=== PATIENT | male | born 1975 | race Caucasian/White ===

== ENCOUNTER 2025-02-19 11:15 | Inpatient (IN) ==
--- NOTE | 2025-02-19 11:49 | Emergency Department Note ---
Impression & Plan Pulmonary embolism Admission ED Provider Note HPI: History obtained from patient. The patient is a 49-year-old gentleman with history of hypertension, presents the emergency department with a chief complaint of right upper extremity swelling/discomfort that has been ongoing for about the past 2 weeks. Patient states that he was seen in the emergency room for the same symptoms at [facility] on 02/10, he states he had an ultrasound done of the right upper extremity at that time that did not show DVT. Patient was ultimately discharged home. Patient states he had a follow-up appointment with his family medicine physician and following his evaluation the patient was recommended to come back to the ER for reassessment. Patient states he has been having some shortness of breath at times with exertion. Patient denies any chest pain. Patient states that he has not had any traumatic injuries to the right upper extremity to attribute the swelling to. Patient states that before the swelling began around 02/06 he was doing some shoveling of dirt in the yard. On arrival here to the ED the patient is hypertensive at 196/93, he is mildly tachycardic at 104, patient otherwise appears to be in no acute distress. ROS: - Per HPI Differential Diagnosis: DVT of the right upper extremity, pulmonary embolism, ACS, pleural effusion, obstructive mass/tumor with venous compression, CHF exacerbation, lymphedema, amongst other potential pathologies. *Outpatient medications and allergy history reviewed. PE: General: Alert HEENT: Normocephalic, trachea midline Eyes: Extraocular eye movement is intact, no scleral erythema Pulmonary: Clear to auscultation bilaterally, no wheezing Cardio: Regular rate and rhythm GI: Abdomen is soft to palpation : No suprapubic tenderness MSK: There is moderate asymmetrical swelling of the right upper extremity in comparison to the left, motor and sensory function is otherwise intact, there is a palpable radial pulse in the right upper extremity Skin: No evidence of rash Neuro: Alert, no focal deficits Psychiatric: Cooperative INDEPENDENT INTERPRETATIONS: hall monitor: (As interpreted by myself): - An order was placed for continuous cardiac monitoring - Patient was noted to be in sinus rhythm with a rate of 80 EKG: (As interpreted by myself): Rate: 89 Rhythm: Normal sinus rhythm Intervals: Within normal limits ST changes: No ST elevation Time: 1147 Interventions provided in ED: - IV fluid bolus, IV heparin drip Medical Decision Making: IV was established and lab work obtained, patient was placed on shelter monitor. Lab work shows no leukocytosis, hemoglobin is normal, platelet count is normal, CMP does not show any evidence of any critical findings. Troponin is negative x 1. Ultrasound imaging of the right upper extremity shows evidence of an occlusive subclavian vein thrombus. CT angiography of the chest was obtained and shows multiple scattered bilateral PE with correlating groundglass opacities possibly pulmonary infarct. No evidence of right heart strain. On my reassessment the patient remains hemodynamically stable and saturating well on room air, given his clot burden I think would be reasonable to admit the patient and started him on a heparin drip for further medical evaluation to determine the source of his clots. Patient was in agreement to this plan. Case was discussed with the on-call hospitalist, Dr. Hirsch, and the patient was placed for admission in stable condition. Consultants/Discussions held with other healthcare providers: - Hospitalist, Dr. Hirsch Disposition discussion held by myself with: - Patient Diagnosis: 1. Bilateral pulmonary emboli with pulmonary infarcts, acute 2. Subclavian vein thrombus, acute, right sided 3. Right upper extremity swelling, acute 4. Dyspnea on exertion, acute Disposition: Admission Smith Masters DO Emergency Medicine Past Med/Surg History Problem List (Updated 02/19/25 @ 15:00 by Smith Masters DO) Pulmonary embolism (Acute) Social History Smoking Status: Never smoker Preferred Language: Portuguese Feels Safe at Home: Yes Results & Data (ED) Vital Signs Vital Signs - 24 hr 02/19/25 11:18 02/19/25 11:39 02/19/25 11:54 Temperature 36.9 C Temperature Source Temporal Artery Scan Pulse Rate 104 H 74 82 Pulse Rate [Apical] Pulse Rhythm Regular Pulse Rhythm [Apical] Pulse Strength [Apical] Respiratory Rate 18 19 Respiratory Effort / Characteristics Non-Labored Spontaneous Respiratory Depth Normal Respiratory Pattern Regular Blood Pressure 196/93 H Blood Pressure [Left Arm] Blood Pressure Mean 127 Blood Pressure Mean [Left Arm] Blood Pressure Position [Left Arm] Pulse Oximetry 98 97 Oxygen Delivery Method Room Air Room Air Sepsis Recent Fever Within 48 Hours No Sepsis New/Unexplained Change in Mental Status N/A Sepsis Action Taken by Nursing No Action Required 02/19/25 11:55 02/19/25 11:57 02/19/25 12:08 Temperature Temperature Source Pulse Rate Pulse Rate [Apical] 75 Pulse Rhythm Pulse Rhythm [Apical] Regular Pulse Strength [Apical] Normal Respiratory Rate 15 Respiratory Effort / Characteristics Non-Labored Non-Labored Respiratory Depth Normal Normal Respiratory Pattern Regular Regular Blood Pressure Blood Pressure [Left Arm] 196/80 H Blood Pressure Mean Blood Pressure Mean [Left Arm] 118 Blood Pressure Position [Left Arm] Lying Pulse Oximetry 95 98 Oxygen Delivery Method Room Air Room Air Room Air Sepsis Recent Fever Within 48 Hours Sepsis New/Unexplained Change in Mental Status Sepsis Action Taken by Nursing 02/19/25 14:10 Temperature Temperature Source Pulse Rate Pulse Rate [Apical] 75 Pulse Rhythm Pulse Rhythm [Apical] Regular Pulse Strength [Apical] Normal Respiratory Rate 15 Respiratory Effort / Characteristics Non-Labored Respiratory Depth Normal Respiratory Pattern Regular Blood Pressure Blood Pressure [Left Arm] 175/81 H Blood Pressure Mean Blood Pressure Mean [Left Arm] 112 Blood Pressure Position [Left Arm] Lying Pulse Oximetry 96 Oxygen Delivery Method Room Air Sepsis Recent Fever Within 48 Hours Sepsis New/Unexplained Change in Mental Status Sepsis Action Taken by Nursing Laboratory Data 02/19/25 11:57 02/19/25 11:57 Lab Results 02/19/25 02/19/25 Range/Units 11:57 13:01 WBC 6.18 (4.8-10.8) K/ul RBC 4.55 L (4.70-6.10) M/uL Hgb 14.0 (14.0-18.0) g/dl Hct 40.5 L (42.0-52.0) % MCV 89.0 (80.0-100.0) fL MCH 30.8 (25.0-34.0) pg MCHC 34.6 (32.0-36.0) g/dL RDW Std Deviation 39.8 (36.4-46.3) fL RDW Coeff of Flak[place] 12.3 (11.5-14.5) % Plt Count 338 (130-400) K/uL MPV 9.7 (9.4-12.4) fL Immature Gran % (Auto) 0.3 % Neut % (Auto) 68.3 % Lymph % (Auto) 19.4 % Hettinger % (Auto) 8.1 % Eos % (Auto) 3.4 % Baso % (Auto) 0.5 % Neut # (Auto) 4.22 (1.40-6.50) K/uL Lymph # (Auto) 1.20 (1.20-3.40) K/uL [place]tinger # (Auto) 0.50 (0.11-0.59) K/uL Eos # (Auto) 0.21 (0.00-0.50) K/uL Baso # (Auto) 0.03 (0.00-0.20) K/uL Immature Gran # (Auto) 0.02 (0.01-0.20) K/uL PT Cancelled 10.7 INR Cancelled 1.0 APTT Cancelled 28 PTT Ratio Cancelled 1.0 Sodium 135 L (136-145) mmol/L Potassium 4.1 (3.5-5.1) mmol/L Chloride 99 (98-107) mmol/L Carbon Dioxide 28 (21-32) mmol/L Anion Gap 8 (3-11) BUN 11 (6-23) mg/dl Creatinine 0.94 (0.6-1.4) mg/dl Est Cr Clr Drug Dosing 106.9 ml/min eGFR 98.15 BUN/Creatinine Ratio 11.7 (10-20) Glucose 154 H (70-99(Fasting)) mg/dl Calcium 9.5 (8.6-10.3) mg/dl Total Bilirubin 0.6 (0.2-1.0) mg/dl AST 26 (13-39) U/L ALT 22 (7-52) U/L Alkaline Phosphatase 56 (34-104) U/L Troponin I High Sens 2.5 (0-20) pg/ml Total Protein 8.0 (6.0-8.3) gm/dl Albumin 4.6 (3.4-5.0) gm/dl Globulin 3.4 (2.5-4.0) gm/dl Albumin/Globulin Ratio 1.4 (0.9-2) Lipase 22 (11-82) U/L Administered Medications Discontinued Medications Sodium Chloride (Nss) 1,000 mls @ 999 mls/hr IV .Q1H1M ONE Stop: 02/19/25 12:47 Last Infusion: 02/19/25 14:12 Dose: Infused Documented By: Admin: 02/19/25 12:23 Dose: 999 mls/hr Documented By: JENNYFER Ioversol (Optiray 320 125ml) 86 ml IV ONCE ONE Stop: 02/19/25 12:49 Last Admin: 02/19/25 12:48 Dose: 86 ml Documented By: JUDITH Imaging Data Radiologist's Impression: Chest CTA 02/19/25 11:46 CT angio chest PE protocol CT DOSE: 976.46 mGy.cm HISTORY: PE, SOB, RUE swelling. TECHNIQUE: Multiple CTA images of the chest were obtained after the intravenous administration of 90 ml Optiray. Coronal and sagittal MIPS were obtained from the axial data set and were submitted for review. All measurements were obtained according to NASCET criteria. A dose lowering technique was utilized adhering to the principles of ALARA. COMPARISON STUDY: None FINDINGS: There are patchy groundglass opacities lateral right upper lobe and posterior lung bases. No lobar consolidation or pleural effusion. No pneumothorax. There is minimal mediastinal adenopathy. No pericardial effusion. No thoracic aortic dissection or aneurysm. There are multiple bilateral segmental and subsegmental pulmonary emboli which correlate in distribution to the pulmonary opacities, consistent with small pulmonary infarctions. There is mild clot burden. RV to LV ratio is less than 1. No acute osseous findings. IMPRESSION: 1. Multiple acute pulmonary emboli with mild clot burden. No evidence of right heart strain. 2. Groundglass pulmonary opacities correlate with the distribution of the pulmonary emboli consistent with small pulmonary infarctions. ACT 112: Positive. There are findings on this exam that require communication between the performing entity and the patient following Patient Test Result Information Act ([place] Act 112) guidelines. The above report was generated using voice recognition software. It may contain grammatical, syntax or spelling errors. Electronically signed by: Trey Torres M.D. 02/19/2025 1:04 PM Shoulder X-Ray 02/19/25 11:46 XR shoulder RT min 2V routine CLINICAL HISTORY: arm swelling/pain COMPARISON: None FINDINGS: There are mild degenerative changes. There is an old fracture at the greater tuberosity. No acute fracture or dislocation. No evidence of osteomyelitis. There is narrowing of the subacromial space consistent with chronic rotator cuff injury. IMPRESSION: No acute fracture seen. Otherwise as described. ACT 112: Negative or not required by law. Electronically signed by: Trey Torres M.D. 02/19/2025 12:27 PM Venous Doppler Study 02/19/25 11:46 RIGHT UPPER EXTREMITY VENOUS DOPPLER ULTRASOUND CLINICAL HISTORY: swelling of RUE, eval for DVT COMPARISON STUDY: No previous studies for comparison. TECHNIQUE: Sonography of the venous system of the right upper extremity was performed. FINDINGS: The right internal jugular vein is patent. Occlusive deep venous thrombus within the right subclavian vein is present. The right axillary, brachial, radial, ulnar, cephalic and basilic veins are patent. IMPRESSION: Occlusive deep venous thrombus within the right subclavian vein. ACT 112: Negative or not required by law. Electronically signed by: Jaswinder Khan M.D. 02/19/2025 2:19 PM Discharge Plan Visit Data Chief Complaint: Shortness of Breath/Dyspnea Stated Complaint: SWOLLEN R ARM, SOB ED Provider: Smith Masters Discharge Problem: Pulmonary embolism Forms Stand Alone Forms: My [facility] Referrals Referrals: PCP,NO [Physician] -
[2025-02-19 12:12] LABS: Basophils # (auto) 0.03 K/uL (0.00-0.20); Basophils % (auto) 0.5 %; Eosinophils # (auto) 0.21 K/uL (0.00-0.50); Eosinophils % (auto) 3.4 %; Hematocrit (blood only) 40.5 % (42.0-52.0); Immature Granulocytes # (auto) 0.02 K/uL (0.01-0.20); Immature Granulocytes % (auto) 0.3 %; Lymphocytes % (auto) 19.4 %; Mean Corpuscular Hemoglobin 30.8 pg (25.0-34.0); Mean Corpuscular Hgb Conc 34.6 g/dL (32.0-36.0); Mean Platelet Volume 9.7 fL (9.4-12.4); Monocytes % (auto) 8.1 %; Neutrophils # (auto) 4.22 K/uL (1.40-6.50); Neutrophils % (auto) 68.3 %; Platelet Count 338 K/uL (130-400); RDW Coefficient of Variation 12.3 % (11.5-14.5); RDW Standard Deviation 39.8 fL (36.4-46.3); Red Blood Count 4.55 M/uL (4.70-6.10); White Blood Count 6.18 K/ul (4.8-10.8)
[2025-02-19] MEDS: SODIUM CHLORIDE 0.9% 1,000 ML IV ONE (12:23)
--- NOTE | 2025-02-19 12:28 | XRay Report ---
XR shoulder RT min 2V routine CLINICAL HISTORY: arm swelling/pain COMPARISON: None FINDINGS: There are mild degenerative changes. There is an old fracture at the greater tuberosity. N o acute fracture or dislocation. No evidence of osteomyelitis. There is narrowing of the subacromial space consistent with chronic rotator cuff injury. IMPRESSION: No acute fracture seen. Otherwise as described. ACT 112: Negative or not required by law. Electronically signed by: Trey Torres M.D. 02/19/2025 12:27 PM
[2025-02-19 12:31] LABS: Albumin Level 4.6 gm/dl (3.4-5.0); Bilirubin,Total 0.6 mg/dl (0.2-1.0); Calcium 9.5 mg/dl (8.6-10.3); Potassium 4.1 mmol/L (3.5-5.1)
[2025-02-19 12:37] LABS: Albumin Globulin Ratio 1.4 (0.9-2); BUN Creatinine Ratio 11.7 (10-20); Creatinine Clr Calc Pharmacy 106.9 ml/min; Globulin 3.4 gm/dl (2.5-4.0); Troponin I High Sensitivity 2.5 pg/ml (0-20)
[2025-02-19] MEDS: OPTIRAY 320 125ml IV ONE (12:48)
--- NOTE | 2025-02-19 13:05 | CT Scan Report ---
CT angio chest PE protocol CT DOSE: 976.46 mGy.cm HISTORY: PE, SOB, RUE swelling. TECHNIQUE: Multiple CTA images of the chest were obtained after the intravenous administration of 90 ml Optiray. Coronal and sagittal MIPS were obtained from the axial data set and were submitted for r eview. All measurements were obtained according to NASCET criteria. A dose lowering technique was ut ilized adhering to the principles of ALARA. COMPARISON STUDY: None FINDINGS: There are patchy groundglass opacities lateral right upper lobe and posterior lung bases. N o lobar consolidation or pleural effusion. No pneumothorax. There is minimal mediastinal adenopathy. No pericardial effusion. No thoracic aortic dissection or aneurysm. There are multiple bilateral segm ental and subsegmental pulmonary emboli which correlate in distribution to the pulmonary opacities, c onsistent with small pulmonary infarctions. There is mild clot burden. RV to LV ratio is less than 1. No acute osseous findings. IMPRESSION: 1. Multiple acute pulmonary emboli with mild clot burden. No evidence of right heart strain. 2. Groundglass pulmonary opacities correlate with the distribution of the pulmonary emboli consistent with small pulmonary infarctions. ACT 112: Positive. There are findings on this exam that require communication between the performing entity and the patient following Patient Test Result Information Act ([place] Act 112) guidelines. The above report was generated using voice recognition software. It may contain grammatical, syntax o r spelling errors. Electronically signed by: Trey Torres M.D. 02/19/2025 1:04 PM
[2025-02-19 13:49] LABS: Partial Thromboplastin Time 28 Seconds (21-31); Prothrombin Time 10.7 Seconds (9.0-12.0)
--- NOTE | 2025-02-19 14:21 | Ultrasound Report ---
RIGHT UPPER EXTREMITY VENOUS DOPPLER ULTRASOUND CLINICAL HISTORY: swelling of RUE, eval for DVT COMPARISON STUDY: No previous studies for comparison. TECHNIQUE: Sonography of the venous system of the right upper extremity was performed. FINDINGS: The right internal jugular vein is patent. Occlusive deep venous thrombus within the right subclavian vein is present. The right axillary, brachial, radial, ulnar, cephalic and basilic veins a re patent. IMPRESSION: Occlusive deep venous thrombus within the right subclavian vein. ACT 112: Negative or not required by law. Electronically signed by: Jaswinder Khan M.D. 02/19/2025 2:19 PM
[2025-02-19] MEDS: HEPARIN SOD (PORCINE) 1000 UNIT/ML IV ONE ×2 (14:52→16:02)
[2025-02-19] MEDS: HEPARIN 25000 UNIT/500 ML D5W 25,000 UNITS/500 ML BAG IV SCH (14:53)
--- NOTE | 2025-02-19 15:14 | Electrocardiogram Report ---
Test Reason : Blood Pressure : */* mmHG Vent. Rate : 89 BPM Atrial Rate : 89 BPM P-R Int : 158 ms QRS Dur : 90 ms QT Int : 376 ms P-R-T Axes : 65 44 45 degrees QTcB Int : 457 ms Normal sinus rhythm Normal ECG No previous ECGs available Confirmed by Gil Chapa ([id number]) on 02/19/2025 3:13:47 PM Referred By: Bahman Buchanan Confirmed By: Gil Chapa
--- NOTE | 2025-02-19 15:27 | History & Physical Report ---
Date of Service February 19, 2025 Assessment & Plan (1) Pulmonary embolism: Plan: Bilateral pulmonary emboli from right upper extremity saphenous vein thrombosis. Currently there is no respiratory failure and he is on room air. He is on a heparin drip. He will eventually be switched to oral Eliquis. He has no previous history of PE or DVT (2) Deep vein thrombosis (DVT) of right upper extremity: Plan: Developed after baseball impact to lateral biceps area of the right upper extremity on February 06. He noticed swelling of the right upper extremity on February 08. Currently on heparin drip (3) Essential hypertension: Plan: He takes telmisartan/HCT and amlodipine for blood pressure control. 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 2 days later he developed right arm swelling and he has some soreness on the lateral aspect of the biceps area. Today he developed chest discomfort and came to the ED for evaluation. He was found to have bilateral PE with evidence of right subclavian vein thrombosis. He has been started on heparin drip by the ED physician. He is on room air. He has no prior history of coagulopathy or DVT. He is admitted for further evaluation and treatment Allergies Allergy/AdvReac Type Severity Reaction Status Date / Time No Known Allergies Allergy Unverified 02/19/25 15:17 Home Medications Medication Instructions Recorded Confirmed Type amlodipine 10 mg tablet 10 mg PO DAILY 02/19/25 02/19/25 History aspirin 81 mg tablet,delayed 81 mg PO DAILY 02/19/25 02/19/25 History release multivit,calcium,min-folic acid 1 tab PO DAILY 02/19/25 02/19/25 History 240 mcg-D3 25 mcg-lycop 300 mcg tablet (One A Day Men Complete) olmesartan 40 1 tab PO DAILY 02/19/25 02/19/25 History mg-hydrochlorothiazide 25 mg tablet omeprazole 40 mg capsule,delayed 40 mg PO DAILY 02/19/25 02/19/25 History release paroxetine HCl 30 mg tablet 30 mg PO DAILY 02/19/25 02/19/25 History Past Med/Surg History Problem List (Updated 02/19/25 @ 15:24 by Henrique Hirsch MD) Essential hypertension Deep vein thrombosis (DVT) of right upper extremity Pulmonary embolism (Acute) Social History Smoking Status: Never smoker Preferred Language: [place] Feels Safe at Home: Yes Review of Systems 2 Review of Systems: Constitutionalno fever or chills ENTno blurred vision, no double vision, no epistaxis, no sore throat Respiratoryno cough, no wheezing, no shortness of breath Cardiacno palpitations, no syncope. Dull inspiratory chest discomfort Any nausea, vomiting, diarrhea, melena, hematochezia GUno urinary retention, no urinary incontinence, no dysuria, no hematuria Musculoskeletalright upper extremity discomfort laterally in the biceps area, no joint pain, no muscle tenderness Skinno bruising, no rashes, no pruritus Neurono isolated weakness, no paresthesia, no weakness Psychno depression, no anxiety Physical Exam 2 Physical Exam: General-alert and oriented x3, no fever, no chills HEENT-head atraumatic and normocephalic, pupils equal and reactive to light, extraocular muscles intact Neck-no lymphadenopathy or thyromegaly, trachea midline Chest-clear to auscultation. No rales, wheezing or rhonchi Cardiac-regular rate and rhythm, normal S1 and S2 Abdomen-normal bowel sounds, no hepatosplenomegaly Extremities-right upper extremity is mildly edematous as compared to the left. Some venous engorgement noted superficially. Tenderness to palpation on the lateral aspect of the right biceps area Neurocranial nerves II through XII intact, motor and sensory function within normal limits, strength symmetrical, no focal deficits Psych-normal affect, normal mood Results & Data Results & Data Vital Signs (Past 12 Hours) Vital Signs Temp Pulse Pulse Resp BP BP Pulse Ox 02/19/25 14:10 75 15 175/81 H 96 02/19/25 12:08 98 02/19/25 11:57 02/19/25 11:55 75 15 196/80 H 95 02/19/25 11:54 82 02/19/25 11:39 74 19 97 02/19/25 11:18 36.9 C 104 H 18 196/93 H 98 O2 Del Method 02/19/25 14:10 Room Air 02/19/25 12:08 Room Air 02/19/25 11:57 Room Air 02/19/25 11:55 Room Air 02/19/25 11:54 02/19/25 11:39 Room Air 02/19/25 11:18 Room Air Laboratory Results 02/19/25 11:57 02/19/25 11:57 Code Status & VTE Plan Code Status Full code PG Care Time/CCT Total # of Minutes Spent Total Time Spent with Patient: Total time spent is greater than 50% in coordination of care (as documented) at patient's floor/unit and/or counseling patient: Coding Level of Care Code 26873 INT INP/OBS CARE 375MIN Diagnoses Pulmonary embolism I26.99 Deep vein thrombosis (DVT) of right upper extremity I82.621 Essential hypertension I10
[2025-02-19] MEDS: Heparin IV Adult Wt-Based Standard w/ INITIAL Bolus Protocol IV STA (16:01)
[2025-02-19] MEDS ORDERED: ACETAMINOPHEN 325 MG TAB PO PRN (18:05)
[2025-02-19] MEDS ORDERED: ONDANSETRON INJ 2 MG/ML 2 ML VIAL IV PRN (18:05)
[2025-02-19 19:14] LABS: Basophils # (auto) 0.02 K/uL (0.00-0.20); Basophils % (auto) 0.3 %; Eosinophils % (auto) 2.5 %; Hematocrit (blood only) 41.1 % (42.0-52.0); Hemoglobin 14.3 g/dl (14.0-18.0); Immature Granulocytes # (auto) 0.02 K/uL (0.01-0.20); Immature Granulocytes % (auto) 0.3 %; Lymphocytes # (auto) 1.52 K/uL (1.20-3.40); Lymphocytes % (auto) 19.4 %; Mean Corpuscular Hemoglobin 31.2 pg (25.0-34.0); Mean Corpuscular Hgb Conc 34.8 g/dL (32.0-36.0); Mean Corpuscular Volume 89.5 fL (80.0-100.0); Mean Platelet Volume 9.7 fL (9.4-12.4); Monocytes # (auto) 0.49 K/uL (0.11-0.59); Monocytes % (auto) 6.2 %; Neutrophils % (auto) 71.3 %; Platelet Count 367 K/uL (130-400); RDW Coefficient of Variation 12.2 % (11.5-14.5); RDW Standard Deviation 39.5 fL (36.4-46.3); Red Blood Count 4.59 M/uL (4.70-6.10); White Blood Count 7.85 K/ul (4.8-10.8)
[2025-02-19 19:23] LABS: Calcium 9.3 mg/dl (8.6-10.3); Creatinine Clr Calc Pharmacy 111.7 ml/min; Potassium 3.7 mmol/L (3.5-5.1)
[2025-02-19] MEDS: amLODIPine BESYLATE 5 MG TAB PO SCH (21:46)
[2025-02-19 22:30] LABS: ANTI-Xa, UFH(UnfractionatedHep 0.22 IU/ml (0.3-0.7)
[2025-02-20 05:50] LABS: Basophils # (auto) 0.02 K/uL (0.00-0.20); Basophils % (auto) 0.3 %; Eosinophils # (auto) 0.23 K/uL (0.00-0.50); Eosinophils % (auto) 3.1 %; Hemoglobin 14.2 g/dl (14.0-18.0); Immature Granulocytes # (auto) 0.02 K/uL (0.01-0.20); Immature Granulocytes % (auto) 0.3 %; Lymphocytes # (auto) 1.61 K/uL (1.20-3.40); Mean Corpuscular Hgb Conc 34.6 g/dL (32.0-36.0); Mean Corpuscular Volume 89.5 fL (80.0-100.0); Mean Platelet Volume 9.5 fL (9.4-12.4); Monocytes # (auto) 0.57 K/uL (0.11-0.59); Monocytes % (auto) 7.8 %; Neutrophils # (auto) 4.86 K/uL (1.40-6.50); Neutrophils % (auto) 66.5 %; Platelet Count 347 K/uL (130-400); RDW Coefficient of Variation 12.2 % (11.5-14.5); RDW Standard Deviation 39.5 fL (36.4-46.3); Red Blood Count 4.58 M/uL (4.70-6.10); White Blood Count 7.31 K/ul (4.8-10.8)
[2025-02-20 06:06] LABS: BUN Creatinine Ratio 8.2 (10-20); Calcium 9.3 mg/dl (8.6-10.3); Creatinine Clr Calc Pharmacy 110.9 ml/min; Potassium 3.7 mmol/L (3.5-5.1)
[2025-02-20 06:11] LABS: ANTI-Xa, UFH(UnfractionatedHep 0.28 IU/ml (0.3-0.7)
[2025-02-20] MEDS: ASPIRIN 81 MG ECTAB PO SCH (08:13)
[2025-02-20] MEDS: LOSARTAN POTASSIUM 50 MG TAB PO SCH (08:13)
--- NOTE | 2025-02-20 12:36 | Hospitalist Progress Note ---
Date of Service February 20, 2025 Assessment & Plan (1) Pulmonary embolism: Plan: b/l source - right subclavian vein DVT stable in room air, minimal symptoms from the PEs no evidence of right heart failure on exam or by way of imaging but will check echo to be complete cont heparin infusion, standard dosing ultimate transition to PO Eliquis in the future (2) Deep vein thrombosis (DVT) of right upper extremity: Plan: unusual events leading up to this diagnosis with baseball injury to the RUE on February 06, followed by swelling of the RUE on February 08, negative RUE doppler on February 10 at [facility], followed by more swelling no personal or family h/o VTE, no recent travel, no recent surgery informal communication had with Dr Parker from vascular surgery today; he will see Mr Lopez in consult tomorrow he reviewed the CTA chest along with doppler study ?thoracic outlet syndrome leading to the subclavian vein thrombosis? did the trauma of the baseball injury create enough venous injury in the arm causing turbulent blood flow and ultimately the clotting event in the setting of thoracic outlet syndrome?? cont heparin drip ultimate transition to po Eliquis send hypercoagulable w/u (factor 5 Leiden mutation, prothrombin gene mutation, etc) Dr Parker considering embolectomy of the subclavian vein DVT can elevate the arm to reduce swelling (3) Essential hypertension: Plan: He takes telmisartan/HCT and amlodipine for blood pressure control. 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: Plan: question of will defer to Dr Parker re: this possible diagnosis (7) GERD (gastroesophageal reflux disease): Plan: cont PPI once daily Plan updated multiple times at bedside today care d/w Dr Parker from vascular surgery today Admission and Anticipated Discharge Date Admission Date: February 19, 2025 Subjective patient walking around in his room when I first went to see him his & father were present as well patient reports that his right arm swelling has improved over the last day or 2 he provides a timeline of recent events - February 06 - was umpiring a HS baseball game, 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 February 08 - RUE started to swell February 10 - went to [facility] - had RUE venous duplex - negative for DVT; they specifically say in the report that the jugular & subclavian veins compressed normally in the week after the [facility] ER visit the right arm continued to swell despite the above he was going to work, continuing to umpire baseball games, etc no recent travel no recent surgery (had rotator cuff surgery on right shoulder ~4 years ago only) no fam Hx of VTE patient reports occasional paresthesias of both arms at night-time he will straighten the arm out and the paresthesias resolve health - in general has felt well over the last 6 months no weight loss no change in health Review of Systems Review of Systems: cv - no chest pain pulm - recent MCKEON (mild); no cough GI - no N/V/abd pain Physical Exam Physical Exam: gen - WD,WN male in NAD neck - no JVD mouth - MMM heart - RRR, s1 s2, no murmur lungs - CTA b/l abd - soft NT ND BS+, no HSM vascular - radial pulses b/l 2+ ext - no ankle or foot edema b/l, pulses of feet 2+ RUE - mild swelling extending from upper arm down to right hand (he reports it has improved since admission); mild ecchymoses of biceps region; there are multiple small superficial veins on the right chest wall extending to the biceps/shoulder area that are mildly engorged Results & Data Results & Data Vital Signs (Past 12 Hours) Vital Signs Temp Pulse Pulse Resp BP Pulse Ox O2 Del Method 02/20/25 09:35 Room Air 02/20/25 07:20 64 02/20/25 07:06 36.9 C 73 18 137/77 96 Room Air 02/20/25 02:57 72 18 161/75 H 99 Room Air, CPAP Laboratory Results Laboratory Results - last 24 hr 02/19/25 02/19/25 02/19/25 11:57 13:01 18:53 WBC 7.85 RBC 4.59 L Hgb 14.3 Hct 41.1 L MCV 89.5 MCH 31.2 MCHC 34.8 RDW Std Deviation 39.5 RDW Coeff of Flakita 12.2 Plt Count 367 MPV 9.7 Immature Gran % (Auto) 0.3 Neut % (Auto) 71.3 Lymph % (Auto) 19.4 [place] % (Auto) 6.2 Eos % (Auto) 2.5 Baso % (Auto) 0.3 Neut # (Auto) 5.60 Lymph # (Auto) 1.52 [place] # (Auto) 0.49 Eos # (Auto) 0.20 Baso # (Auto) 0.02 Immature Gran # (Auto) 0.02 PT 10.7 INR 1.0 APTT 28 PTT Ratio 1.0 Heparin Anti-Xa, Unfract Sodium 136 Potassium 3.7 Chloride 101 Carbon Dioxide 29 Anion Gap 6 BUN 11 9 Creatinine 0.94 0.90 Est Cr Clr Drug Dosing 106.9 111.7 eGFR 98.15 103.40 BUN/Creatinine Ratio 11.7 10.0 Glucose 154 H 153 H Calcium 9.3 AST 26 ALT 22 Alkaline Phosphatase 56 Troponin I High Sens 2.5 Total Protein 8.0 Globulin 3.4 Albumin/Globulin Ratio 1.4 Lipase 02/19/25 02/20/25 20:59 05:22 WBC 7.31 RBC 4.58 L Hgb 14.2 Hct 41.0 L MCV 89.5 MCH 31.0 MCHC 34.6 RDW Std Deviation 39.5 RDW Coeff of Flakita 12.2 Plt Count 347 MPV 9.5 Immature Gran % (Auto) 0.3 Neut % (Auto) 66.5 Lymph % (Auto) 22.0 [place] % (Auto) 7.8 Eos % (Auto) 3.1 Baso % (Auto) 0.3 Neut # (Auto) 4.86 Lymph # (Auto) 1.61 [place] # (Auto) 0.57 Eos # (Auto) 0.23 Baso # (Auto) 0.02 Immature Gran # (Auto) 0.02 PT INR APTT PTT Ratio Heparin Anti-Xa, Unfract 0.22 L 0.28 L Sodium 137 Potassium 3.7 Chloride 100 Carbon Dioxide 28 Anion Gap 9 BUN 8 Creatinine 0.97 Est Cr Clr Drug Dosing 110.9 eGFR 94.52 BUN/Creatinine Ratio 8.2 L Glucose 132 H Calcium 9.3 AST ALT Alkaline Phosphatase Troponin I High Sens Total Protein Globulin Albumin/Globulin Ratio Lipase PG Care Time/CCT Total # of Minutes Spent Total Time Spent with Patient: Total time spent is greater than 50% in coordination of care (as documented) at patient's floor/unit and/or counseling patient: Coding Level of Care Code 27172 SUB INP/OBS CARE 3/50MIN Diagnoses Pulmonary embolism I26.99 Deep vein thrombosis (DVT) of right upper extremity I82.621 Essential hypertension I10 Anxiety F41.9 Hyperglycemia R73.9 Venous thoracic outlet syndrome of right subclavian vein I87.1 GERD (gastroesophageal reflux disease) K21.9
[2025-02-20] MEDS: PANTOprazole 40 MG TAB PO STA (13:15)
[2025-02-20] MEDS: PARoxetine HCL 10 MG TAB PO ONE (13:15)
[2025-02-20 13:19] LABS: ANTI-Xa, UFH(UnfractionatedHep 0.25 IU/ml (0.3-0.7)
--- NOTE | 2025-02-20 13:34 | Communication Note ---
Date of Service: February 20, 2025 Will see patient tomorrow. Would continue heparin. I believe he would benefit from a mechanical thrombectomy of his right subclavian vein. CTA suggests v enous compression in the left thoracic outlet. TOS is commonly bilateral. I do believe he may have TOS of the right side contributing to his venous obstruction.
[2025-02-20] MEDS: LORazepam 0.5 MG TAB PO PRN (18:19)
[2025-02-21 03:25] LABS: BUN Creatinine Ratio 9.3 (10-20); Calcium 9.3 mg/dl (8.6-10.3); Creatinine Clr Calc Pharmacy 110.9 ml/min; Potassium 3.7 mmol/L (3.5-5.1)
[2025-02-21 03:41] LABS: ANTI-Xa, UFH(UnfractionatedHep 0.39 IU/ml (0.3-0.7)
[2025-02-21 06:37] LABS: Basophils # (auto) 0.02 K/uL (0.00-0.20); Basophils % (auto) 0.3 %; Eosinophils # (auto) 0.24 K/uL (0.00-0.50); Hematocrit (blood only) 40.3 % (42.0-52.0); Hemoglobin 13.6 g/dl (14.0-18.0); Immature Granulocytes # (auto) 0.01 K/uL (0.01-0.20); Immature Granulocytes % (auto) 0.1 %; Mean Corpuscular Hemoglobin 30.6 pg (25.0-34.0); Mean Corpuscular Hgb Conc 33.7 g/dL (32.0-36.0); Mean Corpuscular Volume 90.6 fL (80.0-100.0); Mean Platelet Volume 9.5 fL (9.4-12.4); Monocytes # (auto) 0.67 K/uL (0.11-0.59); Monocytes % (auto) 8.4 %; Neutrophils # (auto) 5.09 K/uL (1.40-6.50); Neutrophils % (auto) 64.2 %; Platelet Count 353 K/uL (130-400); RDW Coefficient of Variation 12.2 % (11.5-14.5); RDW Standard Deviation 40.2 fL (36.4-46.3); Red Blood Count 4.45 M/uL (4.70-6.10); White Blood Count 7.93 K/ul (4.8-10.8)
[2025-02-21 07:12] LABS: ANTI-Xa, UFH(UnfractionatedHep 0.41 IU/ml (0.3-0.7)
[2025-02-21] MEDS: PARoxetine HCL 10 MG TAB PO SCH (08:18)
[2025-02-21] MEDS: PANTOprazole 40 MG TAB PO SCH (08:18)
--- NOTE | 2025-02-21 10:43 | XCELERA ---
[id number]
--- NOTE | 2025-02-21 15:32 | Consultation ---
Date of Consultation February 21, 2025 Assessment & Plan (1) Venous thoracic outlet syndrome of right subclavian vein: It appears at this patient has a right subclavian vein thrombosis secondary to thoracic outlet syndrome. We recommend at this time mechanical thrombectomy of the right subclavian vein followed in the future with a first rib resection on the right. Consideration should also be given for left first rib resection due to compression of the vein on the CT angiogram. Will plan on the mechanical thrombectomy tomorrow. Thank you very much for letting us participate in the care of this patient. History of Present Illness Reason for Consultation: Right subclavian vein thrombosis Attending Physician: Chun Wyatt MD History of Present Illness This is a 49-year-old gentleman had arm swelling developed. 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 He has never had arm swelling in the past and denies any clotting disorders in the past. He was seen in outlying facility that did not show any deep venous thrombosis. He then had more arm swelling and presented to [facility] where he was found to have a subclavian vein clot in the right side and small pulmonary emboli. CT angiogram showed pulmonary emboli and ultrasound showed a right subclavian vein thrombosis. On the CT angiogram there was point of the subclavian on the left side consistent with thoracic outlet syndrome. He did play sports in the past to include baseball and wrestling. He has a job and does a lot of driving and he does drive with his arm elevated on top of the steering wheel with both left and right hand. Allergies Allergy/AdvReac Type Severity Reaction Status Date / Time No Known Allergies Allergy Unverified 02/19/25 15:17 Home Medications Medication Instructions Recorded Confirmed Type amlodipine 10 mg tablet 10 mg PO DAILY 02/19/25 02/19/25 History aspirin 81 mg tablet,delayed 81 mg PO DAILY 02/19/25 02/19/25 History release multivit,calcium,min-folic acid 1 tab PO DAILY 02/19/25 02/19/25 History 240 mcg-D3 25 mcg-lycop 300 mcg tablet (One A Day Men Complete) olmesartan 40 1 tab PO DAILY 02/19/25 02/19/25 History mg-hydrochlorothiazide 25 mg tablet omeprazole 40 mg capsule,delayed 40 mg PO DAILY 02/19/25 02/19/25 History release paroxetine HCl 30 mg tablet 30 mg PO DAILY 02/19/25 02/19/25 History Patient History Social History Smoking Status: Never smoker Hx Alcohol Use: Yes Alcohol type: beer Hx Substance Use: No Preferred Language: Romansh Communication Ability: Effective Special Projects Manager Required: No Beliefs That Will Affect Care: None Current Living Situation: Spouse Feels Safe at Home: Yes Assistive Devices: CPAP Review of Systems Review of Systems: All systems reviewed & are unremarkable except as noted in HPI & below Physical Exam Constitutional: WD/WN, vitals as above Respiratory: normal respiratory effort; no respiratory distress Cardiovascular: Rate/Rhythm: regular rate and regular rhythm Vessels: normal peripheral pulses Extremities: normal capillary refill and + edema (right arm) Psychiatric: A+Ox3, euthymic affect Results & Data Vital Signs (Past 12 Hours) Vital Signs Temp Pulse Pulse Resp BP Pulse Ox O2 Del Method 02/21/25 14:49 90 02/21/25 11:16 36.7 C 73 16 158/73 H 96 Room Air 02/21/25 08:47 53 L 02/21/25 07:50 36.6 C 66 16 168/70 H 98 Room Air 02/21/25 07:33 Room Air
--- NOTE | 2025-02-21 20:26 | Hospitalist Progress Note ---
Date of Service February 21, 2025 Assessment & Plan (1) Pulmonary embolism: Plan: b/l source - right subclavian vein DVT stable in room air, minimal symptoms from the PEs, echo with no signs of right heart failure / RV strain cont heparin infusion ultimate transition to PO Eliquis in the future following his surgery (2) Deep vein thrombosis (DVT) of right upper extremity: Plan: unusual events leading up to this diagnosis with baseball injury to the RUE on February 06, followed by swelling of the RUE on February 08, negative RUE doppler on February 10 at [facility], followed by more swelling no personal or family h/o VTE, no recent travel, no recent surgery Dr Parker from [facility] believes that Mr Lopez may have thoracic outlet syndrome which could have contributed heavily to the development of his right subclavian vein DVT cont heparin drip ultimate transition to po Eliquis sent hypercoagulable w/u this AM (factor 5 Leiden mutation, prothrombin gene mutation, etc) Dr Parker to perform mechanical thrombectomy of the subclavian vein DVT on Tuesday, 02/22 NPO after MN tonight can elevate the arm to reduce swelling (3) Essential hypertension: Plan: He takes telmisartan/HCT and amlodipine for blood pressure control. 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: Plan: suspected will need referral to tertiary care center after discharge to complete further work-up and treatment for this possible diagnosis appreciate Dr Parker's assistance (7) GERD (gastroesophageal reflux disease): Plan: cont PPI once daily Plan updated multiple times at bedside yesterday Admission and Anticipated Discharge Date Admission Date: February 19, 2025 Subjective no events RUE swelling modestly improved no pain of RUE minimal dyspnea on exertion present - improved from time of admission tele overnight wnl Review of Systems Review of Systems: CV - no pleuritic pain pulm - no cough GI - no N/V Physical Exam Physical Exam: gen - WD, WN male; NAD; looks well neck - no JVD mouth - MMM heart - RRR, s1 s2, no murmur lungs - CTA b/l abd - soft NT ND BS+, no HSM ext - no ankle or foot edema b/l, pulses of feet 2+ RUE - mild swelling extending from upper arm down to right hand - again improved today; mild ecchymoses of biceps region; there are multiple small superficial veins on the right chest wall extending to the biceps/shoulder area that are mildly engorged Results & Data Results & Data Vital Signs (Past 12 Hours) Vital Signs Temp Pulse Pulse Resp BP Pulse Ox O2 Del Method 02/21/25 15:32 36.5 C 63 18 151/76 H 95 Room Air 02/21/25 14:49 90 02/21/25 11:16 36.7 C 73 16 158/73 H 96 Room Air 02/21/25 08:47 53 L Laboratory Results Laboratory Results - last 24 hr 02/21/25 02/21/25 02/21/25 02:49 02:54 06:06 WBC 7.93 RBC 4.45 L Hgb 13.6 L Hct 40.3 L MCV 90.6 MCH 30.6 MCHC 33.7 RDW Std Deviation 40.2 RDW Coeff of Flakita 12.2 Plt Count 353 MPV 9.5 Immature Gran % (Auto) 0.1 Neut % (Auto) 64.2 Lymph % (Auto) 24.0 Worth % (Auto) 8.4 Eos % (Auto) 3.0 Baso % (Auto) 0.3 Neut # (Auto) 5.09 Lymph # (Auto) 1.90 Worth # (Auto) 0.67 H Eos # (Auto) 0.24 Baso # (Auto) 0.02 Immature Gran # (Auto) 0.01 Heparin Anti-Xa, Unfract 0.39 0.41 Factor V Leiden Mutat Pending Factor V Leiden Interp Pending Sodium 137 Potassium 3.7 Chloride 101 Carbon Dioxide 29 Anion Gap 7 BUN 9 Creatinine 0.97 Est Cr Clr Drug Dosing 110.9 eGFR 94.52 BUN/Creatinine Ratio 9.3 L Glucose 125 H Calcium 9.3 Homocysteine Pending Beta-2-GPI IgG Ab Pending Beta-2-GPI IgM Ab Pending Anti-Cardiolipin IgG Ab Pending Anti-Cardiolipin IgM Ab Pending Prothrombin Gene Mutate Pending Prothromb Gene Comment Pending PG Care Time/CCT Total # of Minutes Spent Total Time Spent with Patient: Total time spent is greater than 50% in coordination of care (as documented) at patient's floor/unit and/or counseling patient: Coding Level of Care Code 29170 SUB INP/OBS CARE 2/35MIN Diagnoses Pulmonary embolism I26.99 Deep vein thrombosis (DVT) of right upper extremity I82.621 Essential hypertension I10 Anxiety F41.9 Hyperglycemia R73.9 Venous thoracic outlet syndrome of right subclavian vein I87.1 GERD (gastroesophageal reflux disease) K21.9
[2025-02-22 06:30] LABS: Basophils # (auto) 0.02 K/uL (0.00-0.20); Basophils % (auto) 0.3 %; Eosinophils # (auto) 0.26 K/uL (0.00-0.50); Eosinophils % (auto) 3.8 %; Hematocrit (blood only) 39.6 % (42.0-52.0); Hemoglobin 13.7 g/dl (14.0-18.0); Immature Granulocytes # (auto) 0.02 K/uL (0.01-0.20); Immature Granulocytes % (auto) 0.3 %; Lymphocytes # (auto) 1.74 K/uL (1.20-3.40); Lymphocytes % (auto) 25.3 %; Mean Corpuscular Hemoglobin 31.2 pg (25.0-34.0); Mean Corpuscular Hgb Conc 34.6 g/dL (32.0-36.0); Mean Corpuscular Volume 90.2 fL (80.0-100.0); Mean Platelet Volume 9.6 fL (9.4-12.4); Monocytes # (auto) 0.57 K/uL (0.11-0.59); Monocytes % (auto) 8.3 %; Neutrophils # (auto) 4.26 K/uL (1.40-6.50); Platelet Count 324 K/uL (130-400); RDW Coefficient of Variation 12.1 % (11.5-14.5); RDW Standard Deviation 40.1 fL (36.4-46.3); Red Blood Count 4.39 M/uL (4.70-6.10); White Blood Count 6.87 K/ul (4.8-10.8)
[2025-02-22 06:50] LABS: BUN Creatinine Ratio 10.6 (10-20); Calcium 9.2 mg/dl (8.6-10.3); Creatinine Clr Calc Pharmacy 114.5 ml/min; Potassium 3.9 mmol/L (3.5-5.1)
--- NOTE | 2025-02-22 07:37 | History & Physical Bridge Note ---
Date of Service February 22, 2025 History & Physical Bridge Note Patient for mechanical thrombectomy of his right subclavian vein. I have discussed the risks options and benefits of the procedure with the patient. The patient understands the risks options and benefits and agrees to the procedure. I have examined the patient, reviewed the History & Physical and in the interval since the performance of the History & Physical I have noted the following changes of clinical significance: no changes noted
[2025-02-22 08:36] LABS: Estimated Average Glucose 108 mg/dl; Hemoglobin A1C 5.4 % (4.5-5.6)
[2025-02-22] MEDS: ceFAZolin 2000MG 2,000 MG/15 ML SYR IV SCH (15:13)
--- NOTE | 2025-02-22 15:20 | Pre Anesthesia Assessment ---
Date of Service February 22, 2025 Pre Sedation Assessment Vital Signs Temp Pulse Pulse Resp BP Pulse Ox O2 Del Method 02/22/25 15:03 36.9 C 69 20 157/85 H 97 Room Air 02/22/25 14:00 69 02/22/25 08:38 36.7 C 61 20 143/82 H 96 Room Air 02/22/25 07:00 69 02/22/25 03:30 36.4 C L 65 16 151/77 H 97 Room Air, CPAP 02/21/25 23:12 36.6 C 57 L 18 173/74 H 96 Room Air 02/21/25 21:53 60 02/21/25 19:38 36.8 C 66 18 160/84 H 98 Room Air 02/21/25 15:32 36.5 C 63 18 151/76 H 95 Room Air Cardiovascular RRR, no murmur, no edema Respiratory normal respiratory effort, lungs clear to auscultation Pre-Sedation Airway Assessment Smoking Status: Never smoker Hx Sleep Apnea: No Short, Thick Neck: No Thyromental Distance: > or= 3.5 Finger Breadths Oral Cavity: + WNL Mallampati Class: I ASA: ASA2 NPO Status Date of Last Intake of Fluids: 02/22/25 Time of Last Intake of Fluids: 23:30 Date of Last Intake of Solid Food: 02/22/25 Time of Last Intake of Solid Foods: 23:30 Procedure Planning Contraindications for Sedation: none Current Medications Reviewed: Yes Notes The planned sedation has been discussed with the patient. Informed Consent was obtained. I have identified the patient, determined the appropriateness of sedation and have assessed the patient immediately prior to the procedure. All medicine(s) and interventions are by my order.
[2025-02-22] MEDS ORDERED: VISIPAQUE IV PRN (15:37)
[2025-02-22] MEDS: MIDAZOLAM HCL 1 MG/ML 2ML VIAL ONE ×3 (15:45→17:35)
[2025-02-22] MEDS: fentaNYL citrate PF 100 MCG/2 ML VIAL ONE ×2 (15:45→16:45)
[2025-02-22] MEDS: HEPARIN SOD (PORCINE) 1000 UNIT/ML ONE (16:00)
[2025-02-22] MEDS: LIDOCAINE 1% LOCAL 20 ML VIAL ONE (16:59)
--- NOTE | 2025-02-22 17:08 | Operative Report ---
Post Operative Report Pre & Post Diagnosis Operation Date: 02/22/25 13:20 Pre-Op Diagnosis: Right Subclavian Vein Thrombosis, Thoracic Outlet Obstruction Post-Op Diagnosis: Right Subclavian Vein Thrombosis, Thoracic Outlet Obstruction I identified the patient and participated in the time-out.: Yes Procedure Operation Date: 02/22/25 13:20 Actual Procedures p Right Subclavian Vein Mechanical Thrombectomy, Percutaneous Transluminal Angionplasty of Subclavian Vein, Moderate Sedation 1545 - 0424- Fredrick Parker MD Surgeon Fredrick Parker MD Lag Screwer Bon Thompson MD Estimated Blood Loss 300 Findings Consistent with Post-Op Diagnosis Thrombosed axillary and subclavian vein with significant amount of thrombus. Following thrombectomy and balloon angioplasty there was reconstitution of flow through then axillary and subclavian vein. Specimens None Anesthesia Type RN Sedation Complications None Disposition Accompanied Patient To Recovery: No Indications Mr. Jewel Lopez is a pleasant 49 year old male who recently developed an occlusive subclavian vein DVT secondary to vTOS. We discussed performing a thrombectomy and after discussion of the risks and benefits the patient elected to proceed. Description of Procedure The patient was taken to the angiogram suite and placed in the supine position. The right arm was then prepped and draped in a sterile manner. Local anesthetic was administered and a percutaneous puncture was then made just above the brachial fossa in the brachial vein. Micropuncture wire and sheath were then inserted. A venogram was then performed. This showed a patent brachial vein and occluded axillary vein and subclavian vein. An angled glide wire was then inserted. The micropuncture sheath was exchanged for a 5Fr sheath. The wire and quickcross catheter were used to cross the occlusion and reach the SVC. Catheter was confirmed in SVC via angiogram. The 5Fr sheath was then exchanged for an 11FR sheath. The Penumbra mechanical thrombectomy catheter 12Fr bolt was then used to perform a mechanical thrombectomy of the axillary and subclavian vein. Substantial acute thrombus was removed. Flow was restored through the venous system. There was significant narrowing seen at the level of the thoracic outlet. Balloon angioplasty of the subclavian vein was then performed here using a [place]alli 12mm balloon. Completion venogram demonstrated significant improvement with a patent axillary and subclavian vein draining into the SVC. The sheath was then pulled and pressure was applied. Adequate hemostasis was obtained. The patient left the angiogram suite in good condition and tolerated the procedure well. Dr. Parker was present and scrubbed for the entire procedure. I attest to the content of the Intraoperative Record and any orders documented therein. Any exceptions are noted below. Supervising Physician Co-Signing Physician Notes Fredrick Parker MD
--- NOTE | 2025-02-22 17:09 | Post Operative Brief Note ---
Immediate Post Op Note Date of Surgery February 22, 2025 Pre & Post Diagnosis Operation Date: 02/22/25 13:20 Pre-Op Diagnosis: Right Subclavian Vein Thrombosis, Thoracic Outlet Obstruction Post-Op Diagnosis: Right Subclavian Vein Thrombosis, Thoracic Outlet Obstruction I identified the patient and participated in the time-out.: Yes Procedure Operation Date: 02/22/25 13:20 Actual Procedures p Right Subclavian Vein Mechanical Thrombectomy, Percutaneous Transluminal Angionplasty of Subclavian Vein, Moderate Sedation 1545 - 4654- Fredrick Parker MD Surgeon Fredrick Parker MD Cotton Presser Bon Thompson MD Estimated Blood Loss 300 Findings Consistent with Post-Op Diagnosis Anesthesia Type RN Sedation Complications none Disposition Accompanied Patient To Recovery: No Disposition: Recovery Room
--- NOTE | 2025-02-22 17:11 | Post Anesthesia Assessment ---
Date of Service February 22, 2025 Post Sedation Assessment Vital Signs Temp Pulse Pulse Resp BP Pulse Ox O2 Del Method 02/22/25 17:09 65 16 143/66 H 99 Oxymask 02/22/25 17:05 65 16 145/96 H 99 Oxymask 02/22/25 17:00 68 16 143/83 H 99 Oxymask 02/22/25 16:55 72 16 142/81 H 99 Oxymask 02/22/25 16:50 66 16 160/94 H 99 Oxymask 02/22/25 16:45 68 16 146/88 H 99 Oxymask 02/22/25 16:40 73 16 144/85 H 99 Oxymask 02/22/25 16:35 70 16 144/80 H 99 Oxymask 02/22/25 16:30 74 16 141/77 H 99 Oxymask 02/22/25 16:25 74 16 137/81 99 Oxymask 02/22/25 16:20 74 16 146/87 H 99 Oxymask 02/22/25 16:15 78 16 140/88 99 Oxymask 02/22/25 16:10 78 16 153/82 H 99 Oxymask 02/22/25 16:05 75 16 153/89 H 99 Oxymask 02/22/25 16:00 78 16 155/84 H 99 Oxymask 02/22/25 15:55 80 16 157/85 H 99 Oxymask 02/22/25 15:50 77 16 168/83 H 100 Oxymask 02/22/25 15:45 83 16 154/90 H 100 Oxymask 02/22/25 15:38 67 16 154/88 H 100 Oxymask 02/22/25 15:03 36.9 C 69 20 157/85 H 97 Room Air 02/22/25 14:00 69 02/22/25 08:38 36.7 C 61 20 143/82 H 96 Room Air 02/22/25 07:00 69 02/22/25 03:30 36.4 C L 65 16 151/77 H 97 Room Air, CPAP 02/21/25 23:12 36.6 C 57 L 18 173/74 H 96 Room Air 02/21/25 21:53 60 02/21/25 19:38 36.8 C 66 18 160/84 H 98 Room Air O2 Flow Rate 02/22/25 17:09 4 02/22/25 17:05 4 02/22/25 17:00 4 02/22/25 16:55 4 02/22/25 16:50 4 02/22/25 16:45 4 02/22/25 16:40 4 02/22/25 16:35 4 02/22/25 16:30 4 02/22/25 16:25 4 02/22/25 16:20 4 02/22/25 16:15 4 02/22/25 16:10 4 02/22/25 16:05 4 02/22/25 16:00 4 02/22/25 15:55 4 02/22/25 15:50 4 02/22/25 15:45 4 02/22/25 15:38 4 02/22/25 15:03 02/22/25 14:00 02/22/25 08:38 02/22/25 07:00 02/22/25 03:30 02/21/25 23:12 02/21/25 21:53 02/21/25 19:38 Recovery Score Activity: Moves 4 extremities Respiration: Deep Breath/Cough Circulation: +/-20% PreAnes Value Consciousness: Fully Awake Oxygen Saturation: > 92% On Room Air Post Anesthesia Score: 10 Discharge Sedation Level of Care: Fast Track Phase II Post Sedation Plan On clinical assessment, the patient appears to have tolerated the sedation without complications. Patient is recovering as anticipated. Patient will continue to be monitored by nursing and may be discharged when sedation discharge criteria are met per below protocol. Upon Completions of procedure up to 15 minutes continue every 5 minute vital signs and the P.A.R. score; then discharge to a Phase I or Fast Track to Phase II per the following guidelines: * Discharge Patient to appropriate Phase II area if PAR is 8 or greater or return to pre- procedure baseline. The post - procedure orders will be as directed. * If PAR score is less than 8 or not return to pre-procedure baseline then patient will follow Phase I monitoring till PAR is reached for Phase II. The Phase I may be done in procedure room or may call to secure a Phase I area. * If naloxone or flumazenil are used for reversal, hold in Phase I for continued monitoring from when last reversal dose was given for a minimum of 60 minutes or longer pending the nurse and/or physician discretion of patient condition before discharge to Phase II. Please call the Sedation Physician to re-evaluate and complete post-note for discharge to Phase II area. Do NOT discharge from procedure sedation or Phase 1 until post- sedation evaluation note is complete by procedure /sedation MD Sedation Discharge Instructions to be given to the patient at discharge to home.
[2025-02-22] MEDS: APIXABAN 5 MG TABLET PO SCH (17:58)
[2025-02-22] MEDS: CLOPIDOGREL BISULFATE 300 MG TAB PO STA (17:59)
--- NOTE | 2025-02-22 19:57 | Hospitalist Progress Note ---
Date of Service February 22, 2025 Assessment & Plan (1) Pulmonary embolism: Plan: b/l source - right subclavian vein DVT stable in room air, minimal MCKEON from the PEs, echo with no signs of right heart failure / RV strain cont heparin infusion until 9pm at which point it will be stopped transitioning to PO Eliquis today - 10mg BID x 7 days, then 5mg BID thereafter check reynolds of such in the AM tomorrow (2) Deep vein thrombosis (DVT) of right upper extremity: Plan: unusual events leading up to this diagnosis with baseball injury to the RUE on February 06, followed by swelling of the RUE on February 08, negative RUE doppler on February 10 at [facility], followed by more swelling doppler study of RUE at admission with occlusive DVT of R subclavian vein during today's surgery the R axillary vein also had DVT s/p [facility] thrombectomy and angioplasty by Dr Elena Parker from [facility] believes that Mr Lopez has thoracic outlet syndrome which could have contributed heavily to the development of his right subclavian vein DVT (and newly found R axillary vein DVT) cont heparin drip until 9pm tonight then stop transition to po Eliquis 10mg BID x 7 days then 5mg BID thereafter hypercoagulable w/u sent (factor 5 Leiden mutation, prothrombin gene mutation, etc) homocysteine level returned normal appreciate Dr Parker's assistance (3) Essential hypertension: Plan: He takes telmisartan/HCT and amlodipine for blood pressure control. 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: Plan: suspected based on CTA chest findings as well as OR findings from today will need referral to tertiary care center after discharge to complete further work-up and treatment for this possible diagnosis appreciate Dr Parker's assistance (7) GERD (gastroesophageal reflux disease): Plan: cont PPI once daily Plan updated briefly today can likely d/c home in am tomorrow check CBC, BMP in am for stability Admission and Anticipated Discharge Date Admission Date: February 19, 2025 Subjective tele overnight wnl saw patient post-op from his thrombectomy of the right subclavian vein DVT he was feeling well anxious and ready to eat! no N/V/chest pain/dyspnea/abd pain no numbness in right arm or hand no pain in right arm or hand swelling improved RUE he is very pleased with how everything went today Review of Systems Review of Systems: gen - feels well GI - no abd pain CV - no edema of legs pulm - minimal MCKEON Physical Exam Physical Exam: gen - looks great; NAD; walking around the room neck - no JVD mouth - MMM heart - RRR, s1 s2, no murmur lungs - CTA b/l abd - soft NT ND BS+, no HSM ext - no ankle or foot edema b/l, pulses of feet 2+ RUE - mild swelling upper arm from R shoulder to R elbow - again improved today; mild ecchymoses of biceps region; there are multiple small superficial veins on the right chest wall extending to the biceps/shoulder area that were mildly engorged but improved from yesterday's exam vascular - right radial pulse 2+ Results & Data Results & Data Vital Signs (Past 12 Hours) Vital Signs Temp Pulse Pulse Resp BP Pulse Ox O2 Del Method 02/22/25 19:54 36.7 C 58 L 18 151/79 H 98 Room Air 02/22/25 18:30 68 18 155/75 H 95 Room Air 02/22/25 18:18 63 18 149/71 H 94 Room Air 02/22/25 18:00 68 18 148/79 H 95 Room Air 02/22/25 17:37 36.6 C 68 16 133/76 95 Room Air 02/22/25 17:14 65 16 144/78 H 99 Oxymask 02/22/25 17:09 65 16 143/66 H 99 Oxymask 02/22/25 17:05 65 16 145/96 H 99 Oxymask 02/22/25 17:00 68 16 143/83 H 99 Oxymask 02/22/25 16:55 72 16 142/81 H 99 Oxymask 02/22/25 16:50 66 16 160/94 H 99 Oxymask 02/22/25 16:45 68 16 146/88 H 99 Oxymask 02/22/25 16:40 73 16 144/85 H 99 Oxymask 02/22/25 16:35 70 16 144/80 H 99 Oxymask 02/22/25 16:30 74 16 141/77 H 99 Oxymask 02/22/25 16:25 74 16 137/81 99 Oxymask 02/22/25 16:20 74 16 146/87 H 99 Oxymask 02/22/25 16:15 78 16 140/88 99 Oxymask 02/22/25 16:10 78 16 153/82 H 99 Oxymask 02/22/25 16:05 75 16 153/89 H 99 Oxymask 02/22/25 16:00 78 16 155/84 H 99 Oxymask 02/22/25 15:55 80 16 157/85 H 99 Oxymask 02/22/25 15:50 77 16 168/83 H 100 Oxymask 02/22/25 15:45 83 16 154/90 H 100 Oxymask 02/22/25 15:38 67 16 154/88 H 100 Oxymask 02/22/25 15:03 36.9 C 69 20 157/85 H 97 Room Air 02/22/25 14:00 69 02/22/25 08:38 36.7 C 61 20 143/82 H 96 Room Air Laboratory Results Laboratory Results - last 24 hr 02/21/25 02/22/25 06:06 05:57 WBC 6.87 RBC 4.39 L Hgb 13.7 L Hct 39.6 L MCV 90.2 MCH 31.2 MCHC 34.6 RDW Std Deviation 40.1 RDW Coeff of [place] 12.1 Plt Count 324 MPV 9.6 Immature Gran % (Auto) 0.3 Neut % (Auto) 62.0 Lymph % (Auto) 25.3 [place] % (Auto) 8.3 Eos % (Auto) 3.8 Baso % (Auto) 0.3 Neut # (Auto) 4.26 Lymph # (Auto) 1.74 [place] # (Auto) 0.57 Eos # (Auto) 0.26 Baso # (Auto) 0.02 Immature Gran # (Auto) 0.02 Heparin Anti-Xa, Unfract 0.40 Sodium 139 Potassium 3.9 Chloride 103 Carbon Dioxide 29 Anion Gap 7 BUN 10 Creatinine 0.94 Est Cr Clr Drug Dosing 114.5 eGFR 98.15 BUN/Creatinine Ratio 10.6 Glucose 118 H Estimat Average Glucose 108 Hemoglobin A1c 5.4 Calcium 9.2 Homocysteine 8.6 PG Care Time/CCT Total # of Minutes Spent Total Time Spent with Patient: Total time spent is greater than 50% in coordination of care (as documented) at patient's floor/unit and/or counseling patient: Coding Level of Care Code 34875 SUB INP/OBS CARE 2/35MIN Diagnoses Pulmonary embolism I26.99 Deep vein thrombosis (DVT) of right upper extremity I82.621 Essential hypertension I10 Anxiety F41.9 Hyperglycemia R73.9 Venous thoracic outlet syndrome of right subclavian vein I87.1 GERD (gastroesophageal reflux disease) K21.9
[2025-02-22] MEDS: HEPARIN DRIP- STOP ORDER ONE (21:31)
[2025-02-23 07:40] LABS: Hematocrit (blood only) 38.9 % (42.0-52.0); Mean Corpuscular Hemoglobin 30.3 pg (25.0-34.0); Mean Corpuscular Hgb Conc 33.4 g/dL (32.0-36.0); Mean Corpuscular Volume 90.7 fL (80.0-100.0); Mean Platelet Volume 9.7 fL (9.4-12.4); Platelet Count 318 K/uL (130-400); RDW Coefficient of Variation 12.4 % (11.5-14.5); RDW Standard Deviation 40.7 fL (36.4-46.3); Red Blood Count 4.29 M/uL (4.70-6.10)
[2025-02-23 07:58] LABS: BUN Creatinine Ratio 15.2 (10-20); Calcium 9.1 mg/dl (8.6-10.3); Creatinine Clr Calc Pharmacy 117.9 ml/min; Potassium 3.9 mmol/L (3.5-5.1)
[2025-02-23] MEDS: CLOPIDOGREL BISULFATE 75 MG TAB PO SCH (09:14)
[2025-02-23] MEDS: hydroCHLOROthiazide 25 MG TAB PO STA (09:17)
--- NOTE | 2025-02-23 11:58 | Discharge Summary ---
Discharge Summary Date of Service date of admission - February 19, 2025 date of discharge - February 23, 2025 Principal Dx & Hospital Course #1 = Principal Diagnosis (1) Deep vein thrombosis (DVT) of right upper extremity: the patient had an unusual history leading up to this diagnosis. 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 he came to [facility] due to ongoing discomfort/swelling of the entire right arm. venous doppler study of RUE at admission showed an occlusive DVT of the RIGHT subclavian vein. his right subclavian vein DVT was complicated b/l pulmonary emboli. he was treated with heparin drip for the majority of the stay. he was seen in consult by Dr Domingo Parker, [facility], who advised mechanical thrombectomy of the right subclavian vein DVT. on 02/22/25 Dr Parker took Mr Lopez to the OR. in addition to the right subclavian vein DVT there was also DVT in the the right axillary vein. Dr Parker performed mechanical thrombectomy of both the axillary & subclavian vein DVTs as well as angioplasty of the subclavian vein. venous flow was restored through the axillary/subclavian veins following this procedure. Dr Parker believes that Mr Lopez has thoracic outlet syndrome which may have been the culprit in the development of his right subclavian vein/axillary vein DVTs. post-op he was transitioned from heparin infusion to Eliquis 10mg BID x 7 days, followed by 5mg BID thereafter. he will also take plavix 75mg once daily. aspirin will be stopped. Due to the unusual nature of Mr Lopez's case a hypercoagulable work-up was sent (factor 5 Leiden mutation, prothrombin gene mutation, etc). All of these labs were pending at discharge. homocysteine level returned normal. patient will f/u with Dr Parker in the office for a post-op check and arrangements will be made for a referral to [facility] for work-up and potential treatment of the suspected thoracic outlet syndrome. (2) Pulmonary embolism: b/l source - right subclavian vein DVT stable in room air the entire stay, had minimal MCKEON from the PEs, and echo had no signs of right heart failure / RV strain was initially on heparin infusion until the time of his mechanical thrombectomy on 02/22/25 for the right subclavian vein DVT, then on the evening of 02/22 was transitioned to oral Eliquis he was discharged home on Eliquis 10mg BID x 6 additional days, then he will reduce the Eliquis to 5mg BID thereafter (3) Pulmonary infarction: multiple tiny areas of infarction were noted on chest CTA but patient had minimal to no symptoms from such. again o2 sats were wnl the entire stay, and he had no pleuritic chest pain. 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 (8) Anxiety: severe cont paxil 30mg daily (9) Hyperglycemia: high glucose 2nd to stress of illness Hba1c returned wnl at 5.4% (10) GERD (gastroesophageal reflux disease): cont PPI once daily Notes For Next Care Provider Medication Changes From Visit 1. Plavix 75mg daily 2. Eliquis 10mg BID x 6 additional days, then 5mg BID thereafter 3. STOP aspirin Admission HPI Per Admitting Provider 49-year-old white male who is in good health until he was struck by a foul ball in the right upper extremity while he was umpiring on February 06. 2 days later he developed right arm swelling and he has some soreness on the lateral aspect of the biceps area. Today he developed chest discomfort and came to the ED for evaluation. He was found to have bilateral PE with evidence of right subclavian vein thrombosis. He has been started on heparin drip by the ED physician. He is on room air. He has no prior history of coagulopathy or DVT. He is admitted for further evaluation and treatment Discharge Exam gen - looks great; NAD neck - no JVD mouth - MMM heart - RRR, s1 s2, no murmur lungs - CTA b/l abd - soft NT ND BS+, no HSM ext - no ankle or foot edema b/l, pulses of feet 2+ RUE - mild swelling upper arm from R shoulder to R elbow; mild ecchymoses of biceps region; there are multiple small superficial veins on the right chest wall extending to the biceps/shoulder area that were mildly engorged but continue to improve; scant swelling of right distal arm; no swelling of right hand vascular - right radial pulse 2+, perfusion of right hand wnl Discharge Plan Discharge Items Patient Disposition: Home - Self-Care Reason For Visit: Right arm swelling Discharge Diagnosis: 1. right subclavian vein DVT 2. right axillary vein DVT 3. thrombectomy procedure for #1, #2 - Dr Domingo Parker, [facility] 4. bilateral pulmonary emboli 5. suspected thoracic outlet syndrome 6. high blood pressure Activity: Per Instructions section Lifting Comment: no more than 15 pounds particularly with the right arm Bathing Comment: ok to shower, but keep dressing on R arm covered/clean/dry Sexual Activity: Wait until after follow-up appointment Exercise/Sports: Wait until after follow-up appointment Exercise Comment: light walks/activities are OK; no strenous/heavy exertional activities Driving/Machine Use: NO driving unless Dr Parker gives you clearance Non-emergency contact: Primary Care Provider and Surgeon Call non-emergency contact if: you have any medication questions, your symptoms worsen, your pain is not controlled, your pain is worsening and you have a fever Follow-up/Referrals: Bahman Buchanan [Primary Care Provider] - (within 1 week) Fredrick Parker MD [Physician] - (Dr Parker's office to contact you with appointment date/time) Diet: Heart Healthy Addtl Attending Provider Instructions: Mr Lopez, You were hospitalized due to the discovery of DVT blood clot in your right subclavian vein. Some of that clot then moved to your lungs. Blood clots in the lungs are called pulmonary emboli. You were started on IV heparin and Dr Domingo Parker from vascular surgery was consulted. He advised surgical thrombectomy to remove the clot from the subclavian vein. This procedure was performed on 02/22/25. In addition to DVT blood clot in the subclavian vein he also found some blood clot in the axillary vein as well. All clot was removed from these 2 vessels and the blood is now flowing nicely from the right arm back to the heart. Dr Parker believes that you have a condition called thoracic outlet syndrome (see handout). It is felt that the thoracic outlet syndrome may have led to your DVT blood clots. To be thorough we also sent off blood work looking for genetic factors as well as other hematological conditions that can thicken someone's blood and increase the risk of clots. Your body will naturally dissolve the clots in the lungs over time (a few months typically). You may have some mild shortness of breath with heavy walking or other activities due to these pulmonary emboli for a few weeks. These symptoms should resolve with time. Echocardiogram of your heart was done to ensure the blood clot event did not affect your heart. Fortunately the echo was normal. Recommendations - 1. Clopidogrel 75mg once daily every day; start 02/24/25. 2. Eliquis - start PM of 02/23/25; take as follows - * 2 tablets (total of 10mg) twice daily x 6 days, THEN - * 1 tablet (5mg) twice daily thereafter * when the current bottle of Eliquis runs out you can fill the written Eliquis prescription provided 3. NO alcohol use with Eliquis & clopidogrel. 4. AVOID aspirin, motrin, ibuprofen, aleve, naprosyn. However, it is OK to take [id number] tylenol for aches/pains. 5. Keep the current dressing on your right arm intact, clean and dry. You can shower at this time, but keep that dressing covered during the shower. Tomorrow you can remove the current dressing and replace it with band-aid or a similar dressing. The surgical site will heal within a few days. I would keep the surgical site covered with a band-aid or dressing for about 4-5 days. At that point it should be fully healed and it won't require any further dressing. 6. STOP your aspirin. 7. NO umpiring until cleared by Dr Parker. 8. I would continue elevating the right arm on pillows for another 4-5 days to help with the swelling. The swelling should get better with time. Follow-up - see separate section Return to [facility] if - * you have any fever over 100 degrees * you have worsening shortness of breath or chest pains * you have worsening swelling, redness, pain, or difficulty moving the right arm * you have bleeding from any location as listed below * any other concerns It was our pleasure to care for you! -Dr Yoselin White Cattle Sticker Provider Instructions: Blood Thinner (Anticoagulant) Medication Instructions: Your blood clot condition is typically treated with an anticoagulant. Anticoagulants will thin your blood to help prevent new clots. * You should take your medication exactly as directed. * Never skip a dose. * Never take a double dose. If you miss a dose, take it as soon as you remember. Call your Primary Care doctor if you experience any of the following: * Swelling or Pain in your leg * Sudden, continuous pain deep in a muscle * Pain that worsens when you are active or when you stand still for a long time * Chest Pain * Sudden Shortness of Breath * Rapid or pounding heart beat * Fainting * Dizziness * Cough with blood or bloody sputum * Sweating more than normal * Bruises * Heavy or uncontrolled bleeding * Blood in your urine, stool or vomit * Black or tarry stools * Heavy nose bleeding Caring for Your Self at Home: * Avoid sitting, standing or lying down for long periods without moving your legs and feet * When traveling by car, stop to get out and move around at least once every 3 hours * On long airplane, train or bus rides, get up and move around when possible * If you can't get up, wiggle your toes and tighten your calves to keep your blood moving * When shaving please use an electric shaver rather than a traditional straight razor Pending Studies at Discharge: Yes Studies:: Genetic testing, etc for blood clots Stand-Alone Forms: My [facility], Smoking Cessation Medications and DC Order Prescriptions: New clopidogrel [Plavix] 75 mg tablet 75 mg PO DAILY Qty: 30 6RF Eliquis 5 mg Tablet 5 mg PO .BID as directed Qty: 60 0RF Rx Instructions: start PM of 02/23/25; take 2 tabs PO BID x 6 days, then 1 tab PO BID thereafter. Eliquis 5 mg tablet 5 mg PO BID Qty: 60 5RF Continued omeprazole 40 mg capsule,delayed release(DR/EC) 40 mg PO DAILY paroxetine HCl 30 mg tablet 30 mg PO DAILY One A Day Men Complete 240-25-300 mcg Tablet 1 tab PO DAILY olmesartan-hydrochlorothiazide 40-25 mg tablet 1 tab PO DAILY Qty: 0 0RF Rx Instructions: start 02/24/25 Changed amlodipine 10 mg tablet 10 mg PO HS Qty: 0 0RF Discontinued aspirin 81 mg Tablet,Delayed Release (Dr/Ec) 81 mg PO DAILY Discharge Orders: Discharge Order (Routine); Ordered 02/23/25 Ordered By: Chun Carrillo/Other Patient Handouts: Apixaban Oral Tablet, Understanding Deep Vein Thrombosis, Pulmonary Embolism, Understanding Surgical Thrombectomy, Thoracic Outlet Syndrome Admission Data Admit Date/Time: 02/19/25 15:10 Attending Provider: Chun Wyatt Admit Provider: Henrique Hirsch Primary Care Provider: Bahman Buchanan Other Providers: Fredrick Parker Other Interventions: Discharge Summary Assessment (RN) Last Done: 02/23/25 12:40 Hospital Stay Data Consultations [facility] Procedures Performed Operation Date: 02/22/25 13:20 Actual Procedures Right Subclavian Vein/right axillary vein Mechanical Thrombectomy, Percutaneous Transluminal Angioplasty of Subclavian Vein, Moderate Sedation 1545 - 1714 - Fredrick Parker MD Diagnostic Imagining Performed Chest CTA 02/19/25 11:46 CT angio chest PE protocol CT DOSE: 976.46 mGy.cm HISTORY: PE, SOB, RUE swelling. TECHNIQUE: Multiple CTA images of the chest were obtained after the intravenous administration of 90 ml Optiray. Coronal and sagittal MIPS were obtained from the axial data set and were submitted for review. All measurements were obtained according to NASCET criteria. A dose lowering technique was utilized adhering to the principles of ALARA. COMPARISON STUDY: None FINDINGS: There are patchy groundglass opacities lateral right upper lobe and posterior lung bases. No lobar consolidation or pleural effusion. No pneumothorax. There is minimal mediastinal adenopathy. No pericardial effusion. No thoracic aortic dissection or aneurysm. There are multiple bilateral segmental and subsegmental pulmonary emboli which correlate in distribution to the pulmonary opacities, consistent with small pulmonary infarctions. There is mild clot burden. RV to LV ratio is less than 1. No acute osseous findings. IMPRESSION: 1. Multiple acute pulmonary emboli with mild clot burden. No evidence of right heart strain. 2. Groundglass pulmonary opacities correlate with the distribution of the pulmonary emboli consistent with small pulmonary infarctions. ACT 112: Positive. There are findings on this exam that require communication between the performing entity and the patient following Patient Test Result Information Act ([place] Act 112) guidelines. The above report was generated using voice recognition software. It may contain grammatical, syntax or spelling errors. Electronically signed by: Trey Torres M.D. 02/19/2025 1:04 PM Shoulder X-Ray 02/19/25 11:46 XR shoulder RT min 2V routine CLINICAL HISTORY: arm swelling/pain COMPARISON: None FINDINGS: There are mild degenerative changes. There is an old fracture at the greater tuberosity. No acute fracture or dislocation. No evidence of osteomyelitis. There is narrowing of the subacromial space consistent with chronic rotator cuff injury. IMPRESSION: No acute fracture seen. Otherwise as described. ACT 112: Negative or not required by law. Electronically signed by: Trey Torres M.D. 02/19/2025 12:27 PM Venous Doppler Study 02/19/25 11:46 RIGHT UPPER EXTREMITY VENOUS DOPPLER ULTRASOUND CLINICAL HISTORY: swelling of RUE, eval for DVT COMPARISON STUDY: No previous studies for comparison. TECHNIQUE: Sonography of the venous system of the right upper extremity was performed. FINDINGS: The right internal jugular vein is patent. Occlusive deep venous thrombus within the right subclavian vein is present. The right axillary, brachial, radial, ulnar, cephalic and basilic veins are patent. IMPRESSION: Occlusive deep venous thrombus within the right subclavian vein. ACT 112: Negative or not required by law. Electronically signed by: Jaswinder Khan M.D. 02/19/2025 2:19 PM Pending Results Patient Have Any Pending Studies at Discharge: Yes Discharge Instructions Given to Patient (Per Discharging Provider) Mr Lopez, You were hospitalized due to the discovery of DVT blood clot in your right subclavian vein. Some of that clot then moved to your lungs. Blood clots in the lungs are called pulmonary emboli. You were started on IV heparin and Dr Domingo Parker from vascular surgery was consulted. He advised surgical thrombectomy to remove the clot from the subclavian vein. This procedure was performed on 02/22/25. In addition to DVT blood clot in the subclavian vein he also found some blood clot in the axillary vein as well. All clot was removed from these 2 vessels and the blood is now flowing nicely from the right arm back to the heart. Dr Parker believes that you have a condition called thoracic outlet syndrome (see handout). It is felt that the thoracic outlet syndrome may have led to your DVT blood clots. To be thorough we also sent off blood work looking for genetic factors as well as other hematological conditions that can thicken someone's blood and increase the risk of clots. Your body will naturally dissolve the clots in the lungs over time (a few months typically). You may have some mild shortness of breath with heavy walking or other activities due to these pulmonary emboli for a few weeks. These symptoms should resolve with time. Echocardiogram of your heart was done to ensure the blood clot event did not affect your heart. Fortunately the echo was normal. Recommendations - 1. Clopidogrel 75mg once daily every day; start 02/24/25. 2. Eliquis - start PM of 02/23/25; take as follows - * 2 tablets (total of 10mg) twice daily x 6 days, THEN - * 1 tablet (5mg) twice daily thereafter * when the current bottle of Eliquis runs out you can fill the written Eliquis prescription provided 3. NO alcohol use with Eliquis & clopidogrel. 4. AVOID aspirin, motrin, ibuprofen, aleve, naprosyn. However, it is OK to ta ke [id number] tylenol for aches/pains. 5. Keep the current dressing on your right arm intact, clean and dry. You can shower at this time, but keep that dressing covered during the shower. Tomorrow you can remove the current dressing and replace it with band-aid or a similar dressing. The surgical site will heal within a few days. I would keep the surgical site covered with a band-aid or dressing for about 4-5 days. At that point it should be fully healed and it won't require any further dressing. 6. STOP your aspirin. 7. NO umpiring until cleared by Dr Parker. 8. I would continue elevating the right arm on pillows for another 4-5 days to help with the swelling. The swelling should get better with time. Follow-up - see separate section Return to [facility] if - * you have any fever over 100 degrees * you have worsening shortness of breath or chest pains * you have worsening swelling, redness, pain, or difficulty moving the right arm * you have bleeding from any location as listed below * any other concerns It was our pleasure to care for you! -Dr Wyatt Total Time Total Time Spent Total Time Spent (In Minutes): 45 Coding Level of Care Code 63209 INP/OBS DISCH >30 MIN Diagnoses Deep vein thrombosis (DVT) of right upper extremity I82.621 Pulmonary embolism I26.99 Pulmonary infarction I26.99 Acute subclavian vein thrombosis I82.B19 DVT of axillary vein, acute right I82.A11 Venous thoracic outlet syndrome of right subclavian vein I87.1 Essential hypertension I10 Anxiety F41.9 Hyperglycemia R73.9 GERD (gastroesophageal reflux disease) K21.9
[2025-02-25 07:03] LABS: Anti Cardiolipin Ab IgG <2.0 GPL-U/mL; Anti Cardiolipin Ab IgM 3.4 MPL-U/mL; B2 Glycoprotein IgG <2.0 U/mL (<20.0); B2 Glycoprotein IgM <2.0 U/mL (<20.0)
[2025-03-01 04:08] LABS: Factor 5 Mutation NEGATIVE
== END 2025-02-23 13:10 | disposition home or self-care (01) | DRG 270 ==
LOC: SUATTDRO → ED 11:15 → EDINP 15:10 → SUATTDRO 15:10 → 2W 18:05
DX: Z79.82 Long term (current) use of aspirin; K21.9 Gastro-esophageal reflux disease without esophagitis; I87.1 Compression of vein; I26.99 Other pulmonary embolism without acute cor pulmonale; Z79.899 Other long term (current) drug therapy; I82.B11 Acute embolism and thrombosis of right subclavian vein; R73.9 Hyperglycemia, unspecified; F41.9 Anxiety disorder, unspecified; I82.A11 Acute embolism and thrombosis of right axillary vein; I10 Essential (primary) hypertension